=== PATIENT | male | born 1955 | race Caucasian/White ===

== ENCOUNTER 2016-12-11 13:16 | Emergency (ER) | payer OTHER ==
[2016-12-11 13:22] VITALS: BP 139/86; PULSE 81; TEMP 97.9; BMI 41.1
[2016-12-11] MEDS ORDERED: IBUPROFEN 400 MG TABLET (FP) PO ONE ×2 (14:17→14:23)
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
== END 2016-12-11 14:26 | disposition home or self-care (01) ==
LOC: JERFT 13:16
DX: S40.011A Contusion of right shoulder, initial encounter (principal); S00.03XA Contusion of scalp, initial encounter; S50.12XA Contusion of left forearm, initial encounter; Y04.2XXA Assault by strike against or bumped into by another person, initial encounter; Y93.F9 Activity, other caregiving; Y92.238 Other place in hospital as the place of occurrence of the external cause; Y99.0 Civilian activity done for income or pay; Y07.59 Other non-family member, perpetrator of maltreatment and neglect; Y00.XXXA Assault by blunt object, initial encounter
CPT/HCPCS: 99281-25